=== PATIENT | female | born 1990 | race Caucasian/White ===

== ENCOUNTER → 2016-05-30 22:45 | Observation (INO) ==
--- NOTE | 2016-05-30 15:00 | OB/GYN History & Physical ---
Date of Encounter: 05/30/16 Time of Encounter: 14:56 Assessment and Plan (1) Bartholin gland cyst Current visit: Yes Status: Acute Bartholin gland cyst Right sided, extending appx 2.5cm along vaginal wall. Exquisitely tender. Tx: Marsupialization of Bartholin gland cyst Patient placed into observation. Consent obtained. Pain control. Last meal was solids at 11:00. This is non-emergent thus 11:00 + 7 hrs = 6-7pm. No indication for antibiotics at this time. History of Present Illness Chief complaint: genital pain HPI: Ms. Berry is a 25 year old female presents from home with complaint of genital pain. Described as sharp stabbing, 10/10, localized to the right labia. Onset 1 week ago. She was seen and evaluated [address] Caceres and prescribed by mouth Bactrim with which she has been compliant. Her symptoms became exquisitely worse this morning to the point where she was unable to continue her daily activities. Pain worsened with any movement; relieved with stillness. No fever, chills, dyspnea, nausea, vomiting, constipation, diarrhea. Notes mild burning with urination, described as "UTI- like pain." Medications: Bactrim (day 4). Allergies: NKDA. PMH: none. PSH: oral surgery. 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 Caceres. Medications and Allergies Allergies No Known Allergies Allergy (Verified 05/30/16 14:34) Review of System OB - Constitutional Constitutional ROS IM: no anorexia, no chills, no fever(s), no headache(s), no night sweats, no weakness - Cardiovascular Cardiovascular: no chest pain, no diaphoresis, no dyspnea, no palpitations - Respiratory Respiratory: no cough, no dyspnea, no wheezing - Gastrointestinal Gastrointestinal: no abdominal pain, no constipation, no diarrhea, no nausea, no vomiting - Genitourinary Genitourinary: dysuria, no abnormal vaginal bleeding, no change in urinary stream, no urinary hesitancy, no urinary incontinence, no urinary urgency, no vaginal odor, no vaginal pruritis - Psychiatric Psychiatric: no anxiety Exam - Constitutional Constitutional: well developed, well nourished, mild distress (painful movement) - HEENT HEENT: EOMI, Normocephaly, Mucus Membranes Moist - Lungs Respiratory exam: CTAB - Cardiovascular Cardiovascular exam: RRR, +S1, +S2 - Abdomen Abdomen: Present: bowel sounds normal, non tender. Absent: gravid, guarding noted - Extremities Extremities exam: normal capillary refill, normal inspection, radial pulses palpable and symetrical - Vulva Vulva: bilateral: normal - Vagina Vagina: Present: normal moisture, cyst noted (Bartholin cyst in right labia minor extending appx 2.5cm along vaginal wall.) - Anus/Rectum Anus/Rectum: Present: normal perianal skin Results All other labs normal. - VTE Reasons for not Prescribing Prophylaxis: Treatment not Indicated - Low risk for VTE
[2016-05-30 15:11] LABS: Hematocrit 40.8 % (35.3-44.9); Hemoglobin 13.3 g/dL (11.5-15.4); Mean Corpuscular HGB Conc 32.6 g/dL (31.6-35.5); Mean Corpuscular Volume 88.9 fL (83.0-100.0); Platelet Count 284 K/mcL (140-400); Red Blood Count 4.59 M/mcL (3.82-4.97); Red Cell Distribution Width 12.6 % (11.5-14.5)
--- NOTE | 2016-05-30 15:14 | Anesthesia Evaluation PreOp ---
Date of Encounter: 05/30/16 Time of Encounter: 15:12 - Past History Planned Operation: I/D cyst vaginal cavity Cardiac History: Denies any Significant Hx Pulmonary History: Denies Any Significant HX JOURNAL BOX INSPECTOR History: Denies Any Significant HX Other Medical History: Denies Any Significant HX Anesthesia History: No Prior Anesthetic Complications, Past Anesthesia : No (preg test pending, awaiting 8hrs for NPO status) Medications and Allergies Allergies No Known Allergies Allergy (Verified 05/30/16 14:34) Anesthesia Results - Labs 05/30/16 15:03 Anesthesia Exam - HEENT Pupil (Motor): Pupils equal Mallampati: II Teeth: Normal Oral Opening: Greater than 3 - JOURNAL BOX INSPECTOR LOC: Oriented JOURNAL BOX INSPECTOR Motor: Normal RUE, Normal LUE, Normal RLE, Normal LLE, Normal Face JOURNAL BOX INSPECTOR Sensory: Normal: RUE, LUE, RLE, LLE, Face - Cardiac Rhythm: Regular Murmur: None - Pulmonary Breath Sounds: bilateral Clear Respiratory Effort: Symmetrical Anesthesia Assess/Plan ASA Score: 1, E Modified Evy Scale for Level of Consciousness: Cooperative, oriented, and tranquil Anesthetic Plan: General Monitoring Plan: Standard Monitors Recovery Plan: PACU
[2016-05-30 17:58] LABS: Bilirubin,Urine Negative (Negative); Blood,Urine Negative (Negative); Color,Urine Yellow (Yellow); Glucose,Urine (UA) Normal (Normal); Ketones,Urine Negative (Negative); Leukocyte Esterase,Urine Negative (Negative); Nitrite,Urine Negative (Negative); Protein,Urine Negative (Neg-Trace); Specific Gravity,Urine 1.023 (1.010-1.025); Urobilinogen,Urine Normal (Normal)
[2016-05-30 18:02] LABS: Bacteria,Urine Few per hpf (None-Few); Hyaline Casts,Urine None Seen per lpf (None-Few); Squamous Epithelial Cell,Urine Many per lpf (None-Few)
[2016-05-30 18:05] LABS: Clarity,Urine Clear (Clear)
--- NOTE | 2016-05-30 20:30 | OB/GYN Procedure Note ---
OB-HEARING SCREEN COORDINATOR: Procedure - Diagnosis Date of procedure: 05/30/16 Pre-op diagnosis: Bartholin gland abscess Post-op diagnosis: same - Procedure Procedure: Bartholin gland marsupialization Surgeon: Otto Weaver Estimated blood loss (cc): 20 Fluids: crystalloid Procedure Complications: none Specimens collected: bartholin abscess culture Disposition: same day Findings: golf ball sized fluctuant bartholins gland Narrative: The patient was brought to the operating room in stable condition and placed on the operating room table in the dorsal supine position. The patient was then administered general anesthesia without difficulty. The patient was then repositioned in the dorsal lithotomy position. Exam under anesthesia was performed. The patient was then perineally prepped and draped. With the use of an 10 blade, an incision was made in the mucocutaneous junction , approximately 1 cm. This allowed the purulent material to exit the cavity. Cultures were taken of this material. The Bartholin gland cavity was then copiously irrigated with sterile saline. Once this was performed, then marsupialization was accomplished with a 3-0 Vicryl interrupted stitching. At the conclusion of the marsupialization, the site was hemostatic. The patient was then repositioned to the dorsal supine position and awakened from general anesthesia. The patient was transferred to the stretcher and taken to the postanesthesia recovery unit in good condition. There were no complications associated with this procedure.
[~2016-05-30 22:45] MED LIST: *HR* FentaNYL (PF) 250 MCG/5 ML VIAL ONE; *HR* Morphine 2 MG/ML SYRINGE IVP STA; *HR* OxyCODONE/APAP 5/325 TABLET PO PRN; Dexamethasone 4 MG/ML VIAL ONE; Famotidine 20 MG/2 ML VIAL IVP ONE; Ibuprofen 600 MG TABLET PO PRN; Ketorolac 30 MG/ML VIAL ONE; Lidocaine -MPF 2% 5 ML VIAL INFILT ONE; Lidocaine/EPI 1:200k 2% PF 20 ML VIAL ONE; Metoclopramide 10 MG/2 ML VIAL IVP ONE; Ondansetron 4 MG/2 ML VIAL IVP STA; Ondansetron 4 MG/2 ML VIAL ONE; Ondansetron ODT 4 MG TAB.RAPDIS SL ONE; Propofol 500 MG/50 ML INFUS..BTL ONE; Ringers Solution, Lactated 1,000 ML IVC SCH; Ringers Solution, Lactated 1,000 ML ONE
== END | disposition home or self-care (01) ==
LOC: 1NENULAB
PROVIDERS: ADMIT Student in an Organized Health Care Education/Training Program; ATTEND Student in an Organized Health Care Education/Training Program

== ENCOUNTER 2019-01-09 18:49 | Observation (INO) ==
[2019-01-09] MEDS: 0.9 % Sodium Chloride 1,000 ML IVC SCH ×3 (20:15→22:10)
[2019-01-09 20:25] LABS: Basophils # 0.1 K/mcL (0.0-0.2); Basophils % 0.4 %; Eosinophils % 0.1 %; Hematocrit 43.5 % (35.3-44.9); Hemoglobin 14.7 g/dL (11.5-15.4); Immature Granulocytes % 0.4 % (0-4); Lymphocytes # 0.7 K/mcL (0.6-4.6); Mean Corpuscular HGB Conc 33.8 g/dL (31.6-35.5); Mean Corpuscular Hemoglobin 29.9 pg (28.0-33.3); Mean Corpuscular Volume 88.6 fL (83.0-100.0); Mean Platelet Volume 9.8 fL (9.4-12.4); Monocytes # 0.3 K/mcL (0.0-1.3); Monocytes % 2.5 %; Platelet Count 387 K/mcL (140-400); Red Blood Count 4.91 M/mcL (3.82-4.97); Red Cell Distribution Width 13.2 % (11.5-14.5); Segmented Neutrophils % 91.6 %; White Blood Count 13.1 K/mcL (4.3-11.1)
[2019-01-09] MEDS ORDERED: Vancomycin 1,000 MG VIAL IVPB ONE (20:27)
[2019-01-09] MEDS ORDERED: Isovue-370 500 ML BOTTLE IVP ONE (20:27)
[2019-01-09] MEDS ORDERED: Metoclopramide 10 MG/2 ML VIAL IVP ONE (20:27)
[2019-01-09] MEDS ORDERED: cefTRIAXone 2,000 MG in Water for inj. (sterile) 20 ML IVP ONE (20:27)
[2019-01-09 20:50] LABS: Alanine Aminotransferase 14 Units/L (7-52); Albumin 4.3 g/dL (3.5-5.7); Albumin/Globulin Ratio 1.3 (1.1-2.2); Alkaline Phosphatase 42 Units/L (34-104); Aspartate Amino Transferase 13 Units/L (13-39); BUN/Creatinine Ratio 10 (6-26); Bilirubin,Indirect 0.3 mg/dL (0.0-1.0); Bilirubin,Total 0.3 mg/dL (0.3-1.0); Blood Urea Nitrogen 7 mg/dL (6-20); Calcium 9.4 mg/dL (8.6-10.3); Carbon Dioxide 22 mEq/L (23-29); Chloride 104 mEq/L (98-107); Globulin 3.2 g/dL (2.4-3.5); Glucose 114 mg/dL (70-105); Magnesium 1.8 mg/dL (1.6-2.6); Osmolality,Calculated 285 (280-300); Phosphorous 2.5 mg/dL (2.7-4.5); Potassium 3.5 mEq/L (3.5-5.1); Sodium 138 mEq/L (136-145); Total Protein 7.5 g/dL (6.4-8.9); Troponin I < 0.03 ng/mL (< 0.04); eGFR For African Americans > 60 (> 60); eGFR For Non-African Americans > 60 (> 60)
[2019-01-09 22:40] LABS: Bilirubin,Urine Negative (Negative); Blood,Urine Negative (Negative); Clarity,Urine Clear (Clear); Color,Urine Yellow (Yellow); Glucose,Urine (UA) Normal (Normal); Ketones,Urine 40 mg/dL (Negative); Leukocyte Esterase,Urine Negative (Negative); Nitrite,Urine Negative (Negative); Protein,Urine Negative (Neg-Trace); Specific Gravity,Urine 1.017 (1.010-1.025); Urobilinogen,Urine Normal (Normal)
[2019-01-10] MEDS ORDERED: 0.9 % Sodium Chloride 1,000 ML IVC ONE ×2 (00:06→00:07)
[2019-01-10 00:26] LABS: Glucose,CSF 48 mg/dL (40-70); Total Protein,CSF 132 mg/dL (15-45)
[2019-01-10 00:31] LABS: Red Blood Cell,CSF < 0.002 M/mcL
[2019-01-10] MEDS ORDERED: Acyclovir 500 MG in D5% in Water 250 ML IVPB ONE (00:47)
[2019-01-10 01:21] LABS: Appearance,CSF Clear (Clear); Basophils,CSF 0 %; Other Cells,CSF 0 %
[2019-01-10] MEDS ORDERED: Naloxone 0.4 MG/ML INJ IVP PRN (01:57)
[2019-01-10] MEDS ORDERED: Ibuprofen 400 MG TABLET PO PRN (03:35)
[2019-01-10] MEDS: Ondansetron ODT 4 MG TAB.RAPDIS SL PRN ×2 (04:05→19:41)
[2019-01-10 05:13] LABS: Basophils % 0.4 %; Eosinophils % 0.1 %; Hemoglobin 13.3 g/dL (11.5-15.4); Immature Granulocytes % 0.4 % (0-4); Lymphocytes # 1.3 K/mcL (0.6-4.6); Lymphocytes % 11.8 %; Mean Corpuscular HGB Conc 33.3 g/dL (31.6-35.5); Mean Corpuscular Hemoglobin 29.7 pg (28.0-33.3); Mean Corpuscular Volume 89.3 fL (83.0-100.0); Mean Platelet Volume 9.7 fL (9.4-12.4); Monocytes # 1.2 K/mcL (0.0-1.3); Monocytes % 10.1 %; Neutrophils # 8.8 K/mcL (1.6-8.9); Platelet Count 301 K/mcL (140-400); Red Blood Count 4.48 M/mcL (3.82-4.97); Red Cell Distribution Width 13.3 % (11.5-14.5); Segmented Neutrophils % 77.2 %; White Blood Count 11.3 K/mcL (4.3-11.1)
[2019-01-10] MEDS: Ringers Solution, Lactated 1,000 ML IVC SCH ×2 (05:23→13:35)
[2019-01-10 05:33] LABS: BUN/Creatinine Ratio 9 (6-26); Blood Urea Nitrogen 5 mg/dL (6-20); Calcium 7.8 mg/dL (8.6-10.3); Carbon Dioxide 19 mEq/L (23-29); Chloride 109 mEq/L (98-107); Glucose 98 mg/dL (70-105); Magnesium 1.6 mg/dL (1.6-2.6); Osmolality,Calculated 285 (280-300); Phosphorous 1.9 mg/dL (2.7-4.5); Potassium 3.4 mEq/L (3.5-5.1); Sodium 139 mEq/L (136-145); eGFR For African Americans > 60 (> 60); eGFR For Non-African Americans > 60 (> 60)
[2019-01-10] MEDS ORDERED: Acetaminophen 325 MG TABLET PO PRN (06:00)
[2019-01-10] MEDS ORDERED: cefTRIAXone 2,000 MG in Water for inj. (sterile) 20 ML IVP SCH (09:00)
[2019-01-10] MEDS ORDERED: Acyclovir 500 MG in D5% in Water 100 ML IVPB SCH (10:00)
[2019-01-10 12:14] LABS: Adenovirus Not Detected (Not Detect); Bordetella Pertussis Not Detected (Not Detect); Chlamydophila pneumoniae Not Detected (Not Detect); Coronavirus 229E Not Detected (Not Detect); Coronavirus HKU1 Not Detected (Not Detect); Coronavirus NL63 Not Detected (Not Detect); Coronavirus OC43 Not Detected (Not Detect); Human Metapneumovirus Not Detected (Not Detect); Human Rhinovirus/Enterovirus Not Detected (Not Detect); Influenza A Subtype 2009 H1 Not Detected (Not Detect); Influenza A Untypeable Not Detected (Not Detect); Influenza B Not Detected (Not Detect); Mycoplasma pneumoniae Not Detected (Not Detect); Parainfluenza Virus 1 Not Detected (Not Detect); Parainfluenza Virus 2 Not Detected (Not Detect); Parainfluenza Virus 3 Not Detected (Not Detect); Parainfluenza Virus 4 Not Detected (Not Detect); Respiratory Syncytial Virus Not Detected (Not Detect)
[2019-01-10] MEDS: traMADol 50 MG TABLET PO PRN (17:41)
[2019-01-10] MEDS ORDERED: Ketorolac 15 MG/ML VIAL IVP ONE (19:54)
[2019-01-10] MEDS: *HR* Promethazine 25 MG/ML VIAL IVP PRN (22:58)
[2019-01-11 02:18] LABS: Basophils % 0.3 %; Eosinophils % 0.2 %; Hematocrit 40.9 % (35.3-44.9); Hemoglobin 13.2 g/dL (11.5-15.4); Immature Granulocytes % 0.2 % (0-4); Lymphocytes # 1.6 K/mcL (0.6-4.6); Lymphocytes % 18.7 %; Mean Corpuscular HGB Conc 32.3 g/dL (31.6-35.5); Mean Corpuscular Hemoglobin 29.8 pg (28.0-33.3); Mean Corpuscular Volume 92.3 fL (83.0-100.0); Mean Platelet Volume 9.6 fL (9.4-12.4); Monocytes # 0.9 K/mcL (0.0-1.3); Monocytes % 10.2 %; Neutrophils # 6.1 K/mcL (1.6-8.9); Platelet Count 278 K/mcL (140-400); Red Blood Count 4.43 M/mcL (3.82-4.97); Red Cell Distribution Width 13.2 % (11.5-14.5); Segmented Neutrophils % 70.4 %; White Blood Count 8.7 K/mcL (4.3-11.1)
[2019-01-11 02:39] LABS: BUN/Creatinine Ratio 7 (6-26); Blood Urea Nitrogen 4 mg/dL (6-20); Calcium 8.8 mg/dL (8.6-10.3); Carbon Dioxide 22 mEq/L (23-29); Chloride 106 mEq/L (98-107); Glucose 102 mg/dL (70-105); Magnesium 1.9 mg/dL (1.6-2.6); Osmolality,Calculated 283 (280-300); Phosphorous 3.2 mg/dL (2.7-4.5); Potassium 3.5 mEq/L (3.5-5.1); Sodium 138 mEq/L (136-145); eGFR For African Americans > 60 (> 60); eGFR For Non-African Americans > 60 (> 60)
[2019-01-11 15:44] VITALS: BP 141/96
[2019-01-11] MEDS: traMADol 50 MG TABLET PO PRN (16:13)
[2019-01-11] MEDS: *HR* Promethazine 25 MG/ML VIAL IVP PRN (16:18)
[2019-01-11] MEDS ORDERED: Ibuprofen 800 MG TABLET PO PRN (17:02)
[2019-01-11] MEDS ORDERED: Aminoglycoside Consult 1 EACH MC ONE (19:36)
[2019-01-12 14:03] LABS: Cytomegalovirus DNA (PCR) NOT DETECTED
[2019-01-13 07:23] LABS: HSV 1 Glycoprotein G IgG CSF 0.01 IV (<=0.89); HSV 2 Glycoprotein G IgG CSF 0.87 IV (<=0.89)
== END 2019-01-11 19:37 | disposition home or self-care (01) ==
LOC: 2NENU 18:49 → EMEROOARM 18:49 → 2NENU 01-10 03:25
PROVIDERS: ADMIT Internal Medicine; ATTEND Internal Medicine